=== PATIENT | male | born 1950 | race Caucasian/White ===

== ENCOUNTER 2017-05-24 13:08 | Outpatient (CLI) | payer SELFPAY ==
--- NOTE | 2017-05-28 11:47 | XRAY Report ---
DATE OF SERVICE: 05/24/2017 TWO VIEW CHEST: 05/24/2017 CLINICAL INDICATION: Uncomplicated asthma. FINDINGS: Frontal and lateral views of the chest demonstrate a normal cardiac silhouette. The lungs are clear. No effusion or pneumothorax is present. IMPRESSION: Normal chest. TD: 05/24/2017 22:07
== END 2017-05-24 13:09 | disposition home or self-care (01) ==
LOC: DI 13:08
PROVIDERS: ATTEND Specialist
DX: J45.909 Unspecified asthma, uncomplicated (principal)
CPT/HCPCS: 71020